=== PATIENT | female | born 1980 | race Caucasian/White ===

== ENCOUNTER 2020-03-24 09:38 | Emergency (ER) | payer OTHER ==
[~2020-03-24] VITALS: Ht 180.3 cm; Wt 83.9 kg
[2020-03-24] MEDS ORDERED: PEPCID20 MG PO (09:49)
[2020-03-24] MEDS ORDERED: HYDROXYZINE HCL25 M2 PO (09:49)
[2020-03-24] MEDS ORDERED: XANAX 0.5 MG0.5 M1 PO (09:49)
[2020-03-24] MEDS ORDERED: LEXAPRO5 MG PO (09:49)
[2020-03-24] MEDS ORDERED: PROBIOTIC1 EAC7 PO (09:50)
[2020-03-24 10:12] LABS: ABSOLUTE EOSINOPHILS 0.1 thou/uL (0.0-0.7); ABSOLUTE LYMPHOCYTES 0.8 thou/uL (0.8-5.3); ABSOLUTE MONOCYTES 0.3 thou/uL (0.0-1.2); ABSOLUTE NEUTROPHILS 4.1 thou/uL (1.6-8.1); BASOPHILS 0.5 %; HEMATOCRIT 38.9 % (37.0-47.0); HEMOGLOBIN 13.2 gm/dL (12.0-15.0); LYMPHOCYTES 15.9 %; MCH 28.6 pg (26.0-34.0); MCHC 33.9 g/dL (28.0-37.0); MCV 84.4 fL (80.0-100.0); MONOCYTES 5.1 %; MPV 7.2 fl. (7.2-11.1); NUCLEATED RBCS 0 /100WBC; PLATELET COUNT* 189 thou/uL (150-400); POLYS 77.5 %; WBC 5.3 thou/uL (4.0-11.0)
[2020-03-24 10:16] LABS: CALCIUM 9.1 mg/dL (8.5-10.1); CREATININE 0.9 mg/dL (0.6-1.3); POTASSIUM 4.1 mmol/L (3.5-5.1)
[2020-03-24 10:18] LABS: URINE BILIRUBIN NEGATIVE (Negative); URINE BLOOD NEGATIVE (Negative); URINE CLARITY CLEAR; URINE COLOR YELLOW; URINE GLUCOSE-RANDOM NEGATIVE (Negative); URINE KETONES NEGATIVE (Negative); URINE LEUKOCYTES-REFLEX TRACE (Negative); URINE NITRITE-REFLEX NEGATIVE (Negative); URINE PROTEIN NEGATIVE (Negative); URINE SPECIFIC GRAVITY <= 1.005 (1.005-1.030); URINE UROBILINOGEN 0.2 E.U./dl (0.2-1.0)
[2020-03-24 10:20] LABS: ALBUMIN 3.8 g/dL (3.4-5.0); MAGNESIUM 1.8 mg/dL (1.8-2.4); TOTAL BILIRUBIN 0.5 mg/dL (<0.1-1.0); TOTAL PROTEIN 7.2 g/dL (6.4-8.2)
[2020-03-24 10:26] LABS: AMP/METHAMP Negative (Negative); BARBITURATES Negative (Negative); BENZODIAZEPINES Negative (Negative); COCAINE Negative (Negative); METHADONE Negative (Negative); OPIATES Negative (Negative); PCP Negative (Negative); THC Negative (Negative)
[2020-03-24 10:30] LABS: BACTERIA-REFLEX 1-9 Few /HPF (None Seen); CASTS None Seen /LPF (None Seen); CRYSTALS None Seen /LPF (None Seen); MUCUS None Seen strn/LPF (None Seen); SQUAMOUS 0-3 Few /LPF (0-3); URINE RBC 0-2 Rare /HPF (0-2); URINE WBC-REFLEX 0-5 Rare /HPF (0-5)
[2020-03-24 12:55] VITALS: BP 120/68
--- NOTE | 2020-03-24 13:44 | EKG ---
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1980 Requested By: Valdo Baig Order Number: [id number] MD: Hector Vidal Measurements Intervals [place] Rate: 80 P: 61 CO: 135 QRS: 96 QRSD: 105 T: 36 QT: 378 QTc: 436 Interpretive Statements Sinus rhythm Probable left atrial enlargement RSR' in V1 or V2, right VCD or RVH Baseline wander in lead(s) I,II,aVR,aVF No previous ECG available for comparison Electronically Signed On 03-24-2020 13:44:22 BAG PATCHER by Hector Vidal [email or web address] <ELECTRONICALLY SIGNED> By: Hector Vidal MD, [facility] 03/24/20 1344 0944 0944 Hector Vidal MD, [facility] /EPI
--- NOTE | 2020-03-24 13:45 | EKG ---
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 : 1980 Requested By: Valdo Baig Order Number: [id number] MD: Hector Vidal Measurements Intervals [place] Rate: 68 P: 33 ND: 144 QRS: 102 QRSD: 100 T: 39 QT: 415 QTc: 442 Interpretive Statements Sinus rhythm Right axis deviation Low voltage, precordial leads Compared to ECG 03/24/2020 09:44:56 Right-axis deviation now present Low QRS voltage now present Electronically Signed On 03-24-2020 13:45:02 SLATE SPLITTER by Hector Vidal [email or web address] <ELECTRONICALLY SIGNED> By: Hector Vidal MD, [facility] 03/24/20 1345 1133 1133 Hector Vidal MD, [facility] /EPI
== END 2020-03-24 12:55 | disposition home or self-care (01) ==
LOC: M.ERS 09:38
PROVIDERS: Emergency Medicine Emergency Medical Services
DX: F41.9 Anxiety disorder, unspecified (principal); Z88.2 Allergy status to sulfonamides; Z79.899 Other long term (current) drug therapy